=== PATIENT | male | born 1990 ===

== ENCOUNTER 2020-05-29 02:35 | Emergency (ER) | payer MEDICAID ==
[~2020-05-29] VITALS: Ht 182.9 cm; Wt 113.6 kg
[2020-05-29 02:41] VITALS: Ht 182.9 cm; Wt 113.6 kg
[2020-05-29 03:05] LABS: BASOPHILS 0.2 % (0-2); EOSINOPHILS 0.2 % (0-7); HEMATOCRIT 43.2 % (42.0-54.0); HEMOGLOBIN 14.4 g/dL (13.5-17.5); IMMATURE GRANULOCYTES 0.2 % (0-5); LYMPHOCYTE ABS# 1.31 10x3/uL (1.32-3.57); LYMPHOCYTES 21.9 % (15-50); MCH 29.9 pg (26.0-34.0); MCHC 33.3 g/dL (31.0-37.0); MCV 89.8 fL (80.0-100.0); MEAN PLATELET VOLUME 8.9 fL (7.4-10.4); MONOCYTES 6.5 % (2-11); NEUTROPHIL ABS# 4.25 10x3/uL (1.78-5.38); PLATELET COUNT 364 10x3/uL (130-400); RBC 4.81 10x6/uL (4.20-6.10); RDW 12.9 % (11.5-14.5)
[2020-05-29 03:28] LABS: ANION GAP 16.5 mmol/L (8-16); CALCIUM 9.1 mg/dL (8.5-10.1); CARBON DIOXIDE 23.8 mmol/L (21.0-32.0); CREATININE - SERUM 1.4 mg/dL (0.6-1.3); POTASSIUM - SERUM 3.3 mmol/L (3.5-5.1); UDS - AMPHET POSITIVE QUAL (NEGATIVE); UDS - BARB NEGATIVE QUAL (NEGATIVE); UDS - BENZO NEGATIVE QUAL (NEGATIVE); UDS - COCAINE NEGATIVE QUAL (NEGATIVE); UDS - OPIATE NEGATIVE QUAL (NEGATIVE); UDS - PCP NEGATIVE QUAL (NEGATIVE); UDS - THC POSITIVE QUAL (NEGATIVE)
[2020-05-29 03:31] LABS: BILIRUBIN NEGATIVE (NEGATIVE); KETONE NEGATIVE (NEGATIVE); NITRITE NEGATIVE (NEGATIVE); UROBILINOGEN 4 mg/dL (< 2)
[2020-05-29 03:32] LABS: WHITE CELLS - URINE 0-5 HPF (0-1)
[2020-05-29 03:33] LABS: BACTERIA FEW HPF (NONE SEEN); SQUAMOUS EPITHELIAL 0-5 HPF (0-4)
[2020-05-29 03:35] LABS: ALBUMIN 3.9 g/dL (3.4-5.0); BILIRUBIN - TOTAL 0.41 mg/dL (0.2-1.3); MAGNESIUM - SERUM 1.8 mg/dL (1.8-2.4); PROTEIN - SERUM 7.5 g/dL (6.4-8.2)
[2020-05-29 08:07] VITALS: BP 130/67
[2020-05-29] MEDS ORDERED: ABILIFY10 MG PO (08:15)
[2020-05-29 08:49] LABS: SARS-CoV-2 ANTIGEN NEGATIVE- SARS-COV-2 (NEGATIVE)
--- NOTE | 2020-05-29 09:09 | NUR ---
DR. TUCKER NOTIFIED AND REVIEWED PT'S BEHAVIOR AND ASSESSMENT RESULTS. PT IS A ZERO RISK PER DR. WERNER. DR. TUCKER STATED TO GIVE RESOUCES TO PT AT TIME OF DISCHARGE. NO FURTHER ORDERS AT THIS TIME. RESOUCRES REVIEWED WITH PT AND HE VERBALIZIED UNDERSTANDING.
== END 2020-05-29 13:00 | disposition left against medical advice (07) ==
LOC: D.ER 02:35
PROVIDERS: Family Medicine
DX: F23 Brief psychotic disorder (principal); F20.9 Schizophrenia, unspecified; Z53.29 Procedure and treatment not carried out because of patient's decision for other reasons; F15.10 Other stimulant abuse, uncomplicated

== ENCOUNTER 2020-05-30 18:40 | Emergency (ER) | payer OTHER ==
[~2020-05-30] VITALS: Ht 182.9 cm; Wt 102.3 kg
[~2020-05-30 18:40] MED LIST: ABILIFY10 MG PO
[2020-05-30 18:44] VITALS: BP 119/81; Ht 182.9 cm; Wt 102.3 kg
== END 2020-05-30 19:12 | disposition left against medical advice (07) ==
LOC: D.ER 18:40
DX: M79.673 Pain in unspecified foot (principal)